=== PATIENT | male | born 1945 | race Caucasian/White ===

== ENCOUNTER → 2016-10-26 | Outpatient (CLI) | payer MEDICARE, OTHER | END | disposition home or self-care (01) | LOC: GMAB 10:40 | PROVIDERS: ATTEND Family Medicine | DX: Z12.5 Encounter for screening for malignant neoplasm of prostate (principal); I10 Essential (primary) hypertension | CPT/HCPCS: 84443; G0103 ==

== ENCOUNTER → 2017-07-28 | Outpatient (CLI) | payer MEDICARE, OTHER ==
--- NOTE | 2017-07-29 17:28 | CT ---
EXAM DESCRIPTION: Abdomen/Pelvis w/wo Contrast CLINICAL HISTORY: 72 years Male EPIGASTRIC PAIN COMPARISON: 03/30/2016. TECHNIQUE: Contiguous axial images obtained through the abdomen and pelvis following IV contrast. Reformatted images obtained. This exam was performed according to our department optimization program which includes automated exposure control, adjustment of the mA and/or kv according to patient size and/or use of iterative reconstruction technique. FINDINGS: There is a small noncalcified nodular focus in the base of the right middle lobe measuring 4 mm. Recommend follow-up in 12 months if this patient has high risk factors for malignancy. There is a stable nodular density along the superior aspect of the right hemidiaphragm seen on series 2 image 10. The spleen and pancreas appear unremarkable. No adrenal masses. The kidneys appear unremarkable. No hydronephrosis. The gallbladder is visualized. No aneurysmal dilatation of the aorta. Scattered vascular calcification. No bowel obstruction. The appendix is unremarkable. No significant free fluid noted. Prostate is calcified. Occasional diverticula in the colon without evidence of diverticulitis. IMPRESSION: No acute abnormality is identified. 4 mm nodule in the right lung base which is not clearly seen on the prior examination secondary to slice location. If this patient has risk factors for malignancy, recommend follow-up in 12 months Diverticulosis without diverticulitis Electronically signed by: Cesia Valadez 07/29/2017 5:27 PM [employer]
== END | disposition home or self-care (01) ==
LOC: CT 10:11
PROVIDERS: ATTEND Family Medicine
DX: R10.13 Epigastric pain (principal)

== ENCOUNTER 2017-08-01 05:56 | Day surgery (SDC) | payer MEDICARE, OTHER ==
[2017-08-01] MEDS ORDERED: MIDAZOLAM INJ 2 MG/2 ML VIAL ONE (08:08)
[2017-08-01] MEDS ORDERED: TROP 1%/CYCLOPEN 1%/PHENYL 2% DROPS ONE (09:28)
[2017-08-01] MEDS: PROPARACAINE 0.5% OPHTH SOL 15 ML BTTL ONE ×2 (09:46→10:40)
[2017-08-01] MEDS: TOBRAMYCIN SULF 0.3 % OPHT SOL 1 DROP LEFT_EYE ONE ×2 (09:47→10:58)
[2017-08-01] MEDS ORDERED: LIDOCAINE 1% MPF 5 ML VIAL INJ ONE (10:55)
[2017-08-01] MEDS ORDERED: DEXAMETHASONE 0.1% OPHTH SOL 1 DROP LEFT_EYE ONE (10:57)
[2017-08-01] MEDS ORDERED: BRIMONIDINE 0.2% OPHTH DROPS LEFT_EYE ONE (10:58)
[2017-08-01 13:01] VITALS: BP 144/76; TEMP 98.2; O2SAT 98
== END 2017-08-01 11:45 | disposition home or self-care (01) ==
LOC: AMB 05:56
PROVIDERS: ATTEND Ophthalmology
DX: H25.12 Age-related nuclear cataract, left eye (principal); I10 Essential (primary) hypertension; Z87.891 Personal history of nicotine dependence; Z79.82 Long term (current) use of aspirin; Z79.899 Other long term (current) drug therapy
CPT/HCPCS: 66984; J2250

== ENCOUNTER 2017-09-26 05:50 | Day surgery (SDC) | payer MEDICARE, OTHER ==
[2017-09-26] MEDS ORDERED: TROP 1%/CYCLOPEN 1%/PHENYL 2% DROPS ONE (10:12)
[2017-09-26] MEDS ORDERED: MIDAZOLAM INJ 2 MG/2 ML VIAL ONE (13:00)
[2017-09-26] MEDS ORDERED: TOBRAMYCIN SULF 0.3 % OPHT SOL 1 DROP RIGHT_EYE ONE ×2 (13:26→14:28)
[2017-09-26] MEDS: PROPARACAINE 0.5% OPHTH SOL 15 ML BTTL ONE ×2 (13:26→14:17)
[2017-09-26] MEDS ORDERED: LIDOCAINE 1% PF 2 ML AMP INJ ONE (14:23)
[2017-09-26] MEDS ORDERED: DEXAMETHASONE 0.1% OPHTH SOL 1 DROP RIGHT_EYE ONE (14:27)
[2017-09-26] MEDS ORDERED: BRIMONIDINE 0.2% OPHTH DROPS RIGHT_EYE ONE (14:28)
[2017-09-26 15:11] VITALS: BP 156/89; TEMP 98.2; O2SAT 98
== END 2017-09-26 15:05 | disposition home or self-care (01) ==
LOC: AMB 05:50
PROVIDERS: ATTEND Ophthalmology
DX: H25.11 Age-related nuclear cataract, right eye (principal); I10 Essential (primary) hypertension; Z79.82 Long term (current) use of aspirin; Z79.899 Other long term (current) drug therapy
CPT/HCPCS: 00142; 66984; J2250; V2786

== ENCOUNTER → 2017-10-28 | Outpatient (CLI) | payer MEDICARE, OTHER | LOC: GMAB 10:50 | PROVIDERS: ATTEND Family Medicine | DX: I10 Essential (primary) hypertension (principal); Z12.5 Encounter for screening for malignant neoplasm of prostate | CPT/HCPCS: 84443; G0103 ==

== ENCOUNTER 2018-11-08 05:22 | Day surgery (SDC) | payer MEDICARE, OTHER ==
[2018-11-08] MEDS ORDERED: LACTATED RINGERS 1,000 ML ONE (07:58)
[2018-11-08] MEDS ORDERED: PROPOFOL 200 MG/20 ML VIAL IV ONE (10:00)
[2018-11-08 10:05] VITALS: BP 135/93; TEMP 97.4; O2SAT 94
--- NOTE | 2018-11-08 10:15 | OP ---
DATE OF PROCEDURE: 11/08/18 PREPROCEDURE DIAGNOSIS: 1. Esophageal dysphagia. POSTPROCEDURE DIAGNOSIS: 1. Schatzki's ring. 2. Gastric scar. PROCEDURE: 1. Upper endoscopy with biopsy and Savary dilation. SURGEON: David Louis MD. SEDATION: Monitored anesthesia care. ESTIMATED BLOOD LOSS: Less than 5 mL. PROCEDURE: Informed consent was obtained prior to sedation. The preprocedure cardiopulmonary assessment was satisfactory. The patient was brought to the Endoscopy Suite and placed in the left lateral decubitus position. The patient was then sedated by the anesthesia team. The tip of the Olympus EGD scope was inserted into oropharynx and advanced under direct visualization across the cricopharyngeus muscle into the esophageal lumen. In the GE junction, there was a Schatzki's ring which was nonobstructing. The endoscope passed with ease. Retroflexed view of the cardia showed no abnormalities. There was a scar in the inferior wall of the gastric body with some heaped up mucosa. Biopsies were taken of this area with cold forceps for histology. The antrum appeared normal. The first and second portions of the duodenum were normal. The decision was made to dilate the esophagus. A spring-tip guidewire was fed through the channel of the scope with the tip terminating in the antrum. While leaving the guidewire in place, the endoscope was withdrawn. An 18 mm Savary dilator was inserted over the guidewire with dilation of the entire esophagus. The guidewire and dilator were then withdrawn and the procedure terminated. RECOMMENDATION: 1. Discharge the patient home with escort. 2. Resume regular diet. 3. Continue present medications. 4. Followup pathology. 5. Return to my office in two months. #[id number] MTDD
== END 2018-11-08 10:02 | disposition home or self-care (01) ==
LOC: AMB 05:22
PROVIDERS: ATTEND Internal Medicine Gastroenterology
DX: K29.50 Unspecified chronic gastritis without bleeding (principal); K22.2 Esophageal obstruction; K31.89 Other diseases of stomach and duodenum; K21.9 Gastro-esophageal reflux disease without esophagitis; I10 Essential (primary) hypertension; E66.9 Obesity, unspecified; G47.30 Sleep apnea, unspecified; Z68.36 Body mass index [BMI] 36.0-36.9, adult; Z85.810 Personal history of malignant neoplasm of tongue; Z79.82 Long term (current) use of aspirin; Z79.899 Other long term (current) drug therapy
CPT/HCPCS: 00731; 43239; 43248; 88305; 88342; J3490; J7120

== ENCOUNTER → 2018-11-15 | Outpatient (CLI) | payer MEDICARE, OTHER | LOC: GMAE 10:42 | PROVIDERS: ATTEND Family Medicine | DX: I10 Essential (primary) hypertension (principal) ==

== ENCOUNTER → 2018-12-14 | Outpatient (CLI) | payer MEDICARE, OTHER | LOC: SL 20:25 | PROVIDERS: ATTEND Family Medicine | DX: G47.30 Sleep apnea, unspecified (principal); I10 Essential (primary) hypertension ==

== ENCOUNTER → 2019-06-29 | Outpatient (CLI) | payer MEDICARE, OTHER ==
--- NOTE | 2019-06-29 16:39 | MRI ---
EXAM DESCRIPTION: Knee,Left CLINICAL HISTORY: KNEE PAIN, feels unstable. COMPARISON: None Available. TECHNIQUE: MRI of the right knee is performed with multiplanar multi sequence imaging, without intravenous contrast. FINDINGS: Bone and joint: Moderate reactive/degenerative medial knee compartment bone marrow edema (medial femoral condyle and tibial plateau). Heterogenous bone marrow signal, nonspecific. Moderate to severe knee osteoarthrosis with tricompartmental osteophyte formation. Large knee joint effusion with mild diffuse synovitis. Cartilage: Grade 4/full-thickness chondral loss involves the medial knee compartment. Grade 2-3 chondrosis involves the lateral knee compartment. Grade 3-4 chondrosis involves the patellofemoral compartment. Medial meniscus: Severe degenerative tearing and maceration of the meniscus body with complex tear of the anterior and posterior horns extending towards root insertions. Lateral meniscus: Small tear of the anterior horn root insertion with associated para meniscal cysts. Degenerative signal within the posterior horn and root. Anterior cruciate ligament: Interstitial mucoid degeneration and expansion of the ACL, which is otherwise intact. Posterior cruciate ligament: Intact. Mild mucoid degeneration of the patient with fibrous. Medial collateral ligament: Intact Lateral collateral ligament: Intact Popliteus tendon: Intact Biceps femoris tendon: Intact Iliotibial band: Intact Medial and lateral retinaculum: Intact Extensor mechanism: The distal quadriceps tendon is intact. The patella tendon is intact with mild tendinosis. Soft tissues: Large partially septated Garcia's cyst measuring 5.8 x 3.7 cm.. Mild nonspecific pre and infrapatellar soft tissue edema. IMPRESSION: 1. Medial meniscus maceration and severe complex degenerative tearing. 2. Lateral meniscus small tear at the anterior root. 3. ACL moderate mucoid degeneration. 4. Moderate to severe knee osteoarthrosis with full-thickness medial knee compartment cartilage loss. Moderate medial knee compartment degenerative bone marrow edema. 5. Large knee joint effusion with mild diffuse synovitis. 6. Large Garcia cyst. Electronically signed by: Alexandre Cummins DO 06/29/2019 4:37 PM CDT
== END ==
LOC: MRI 08:00
PROVIDERS: ATTEND Family Medicine
DX: S83.242A Other tear of medial meniscus, current injury, left knee, initial encounter (principal); S83.282A Other tear of lateral meniscus, current injury, left knee, initial encounter; M17.12 Unilateral primary osteoarthritis, left knee; M65.862 Other synovitis and tenosynovitis, left lower leg; M71.22 Synovial cyst of popliteal space [Baker], left knee

== ENCOUNTER → 2019-07-19 | Outpatient (CLI) | payer MEDICARE, OTHER ==
--- NOTE | 2019-07-19 10:33 | RAD ---
EXAM DESCRIPTION: Pelvis CLINICAL HISTORY: 74 years Male, PAIN IN LEFT HIP COMPARISON: None. TECHNIQUE: AP radiograph of the pelvis was performed. FINDINGS: The pelvic ring appears grossly intact on this single AP radiograph. No acute fracture or dislocation. Bilateral sacroiliac joints appear normal. Moderate to severe right and [id number] left hip osteoarthritis. The visualized lumbo-sacral spine demonstrates mild degenerative changes. IMPRESSION: Single AP radiograph of the pelvis demonstrates grossly intact pelvic ring. Moderate to severe right and [id number] left hip osteoarthritis. Electronically signed by: Anca Page MD 07/19/2019 10:31 AM [facility]
--- NOTE | 2019-07-19 10:36 | RAD ---
EXAM DESCRIPTION: Knee,Left Complete CLINICAL HISTORY: 74 years Male, PAIN IN LEFT KNEE TECHNIQUE: 5 views of the left knee were performed. COMPARISON: Radiographs of the left knee dated 06/29/2019. FINDINGS: The visualized bones appear poorly mineralized. No acute fracture or dislocation. Tricompartmental joint space narrowing with [id number]-[id number] appearance in the medial tibiofemoral compartment. Moderate-sized suprapatellar joint effusion. The soft tissues appear grossly unremarkable. IMPRESSION: Tricompartmental joint space narrowing with altm-[id number] appearance in the medial tibiofemoral compartment. Moderate-sized suprapatellar joint effusion. Electronically signed by: Anca Page MD 07/19/2019 10:35 AM [facility]
== END ==
LOC: RAD 08:22
PROVIDERS: ATTEND Orthopaedic Surgery
DX: M17.12 Unilateral primary osteoarthritis, left knee (principal); M25.462 Effusion, left knee; M16.0 Bilateral primary osteoarthritis of hip

== ENCOUNTER → 2019-08-27 | Outpatient (CLI) | payer MEDICARE, OTHER | LOC: LAB.O 08:10 | PROVIDERS: ATTEND Orthopaedic Surgery | DX: Z01.818 Encounter for other preprocedural examination (principal) ==

== ENCOUNTER 2019-09-26 05:22 | Outpatient (CLI) | payer MEDICARE, OTHER ==
[2019-09-26] MEDS ORDERED: SODIUM CHL 0.9% 100ML MINI-BAG 100 ML IVPB ONE (05:41)
[2019-09-26] MEDS ORDERED: SODIUM CHLORIDE 0.9% 100ML 100 ML IVPB ONE (05:42)
[2019-09-26] MEDS ORDERED: SODIUM CHLORIDE 0.9% 250ML 250 ML ONE (05:42)
[2019-09-26] MEDS ORDERED: LACTATED RINGERS 1,000 ML ONE (05:43)
[2019-09-26] MEDS ORDERED: TRANEXAMIC ACID 1,000 MG/10 ML VIAL ONE ×2 (05:43→05:44)
[2019-09-26] MEDS ORDERED: ceFAZolin SODIUM 1 GM VIAL ONE ×2 (05:43→06:28)
[2019-09-26] MEDS ORDERED: VANCOMYCIN HCL INJ 1,000 MG VIAL IVPB ONE ×3 (05:45→06:28)
[2019-09-26] MEDS ORDERED: TRANEXAMIC ACID 1,000 MG/10 ML VIAL IV ONE (06:20)
[2019-09-26] MEDS ORDERED: KETAMINE HCL 100 MG/ML VIAL ONE (06:22)
[2019-09-26] MEDS ORDERED: ACETAMINOPHEN IV 1000MG 0 ML ONE (06:22)
[2019-09-26] MEDS ORDERED: DEXMEDETOMIDINE HCL 200 MCG/2 ML INJ IV ONE (06:22)
[2019-09-26] MEDS ORDERED: HYDROmorphone HCL INJ 2 MG/ML VIAL ONE (06:22)
[2019-09-26] MEDS ORDERED: MIDAZOLAM INJ 5 MG/5 ML VIAL ONE (06:22)
[2019-09-26] MEDS ORDERED: LACTATED RINGERS 1,000 ML IVS ONE (06:25)
[2019-09-26] MEDS ORDERED: BUPIVACAINE 0.5% 30 ML VIAL INJ ONE (06:28)
[2019-09-26] MEDS ORDERED: BUPIVACAINE LIPOSOME 13.3 MG/ML VIAL INJ ONE (06:28)
[2019-09-26 07:52] VITALS: BP 168/84; TEMP 97.3; O2SAT 91
== END 2019-09-26 07:00 | disposition home or self-care (01) ==
LOC: AMB 05:22 → EDSTATUS 07:00
PROVIDERS: ATTEND Orthopaedic Surgery
DX: Z01.818 Encounter for other preprocedural examination (principal); M17.12 Unilateral primary osteoarthritis, left knee
CPT/HCPCS: 80307; 86850; 86900; 86901; J7050; J7120

== ENCOUNTER → 2019-09-28 | Outpatient (CLI) | payer MEDICARE, OTHER ==
[~2019-09-28] MED LIST: IPRATROPIUM/ALBUTEROL 3 ML VIAL NEB ONE
== END ==
LOC: RESP 08:55
PROVIDERS: ATTEND Family Medicine
DX: R06.02 Shortness of breath (principal)
CPT/HCPCS: 94060; J7620

== ENCOUNTER 2019-10-16 05:44 | Inpatient (IN) | payer MEDICARE, OTHER ==
[~2019-10-16 05:44] MED LIST changes: -IPRATROPIUM/ALBUTEROL 3 ML VIAL NEB ONE; +LACTATED RINGERS 1,000 ML ONE; +SODIUM CHL 0.9% 100ML MINI-BAG 100 ML IVPB ONE; +SODIUM CHLORIDE 0.9% 100ML 100 ML IVPB ONE; +SODIUM CHLORIDE 0.9% 250ML 250 ML ONE; +TRANEXAMIC ACID 1,000 MG/10 ML VIAL ONE; +VANCOMYCIN HCL INJ 1,000 MG VIAL IVPB ONE; +ceFAZolin SODIUM 1 GM VIAL ONE
[2019-10-16] MEDS ORDERED: ceFAZolin SODIUM 1 GM VIAL ONE ×3 (06:22→19:39)
[2019-10-16] MEDS ORDERED: VANCOMYCIN HCL INJ 1,000 MG VIAL IVPB ONE ×3 (06:23→19:19)
[2019-10-16] MEDS ORDERED: BUPIVACAINE LIPOSOME 13.3 MG/ML VIAL INJ ONE ×2 (06:23→06:42)
[2019-10-16] MEDS ORDERED: BUPIVACAINE 0.5% 30 ML VIAL INJ ONE ×3 (06:23→07:56)
[2019-10-16] MEDS ORDERED: KETAMINE HCL 100 MG/ML VIAL ONE (06:31)
[2019-10-16] MEDS ORDERED: HYDROmorphone HCL INJ 2 MG/ML VIAL ONE (06:31)
[2019-10-16] MEDS ORDERED: MIDAZOLAM INJ 5 MG/5 ML VIAL ONE (06:31)
[2019-10-16] MEDS ORDERED: ceFAZolin SODIUM 1 GM VIAL IRRIG ONE (06:42)
[2019-10-16] MEDS ORDERED: ELECTROLYTE-A 1,000 ML IVS ONE (08:16)
[2019-10-16] MEDS ORDERED: MORPHINE SULFATE INJ 10 MG/ML VIAL IV PRN (09:35)
[2019-10-16] MEDS ORDERED: TEMAZEPAM 15 MG CAP PO PRN (09:35)
[2019-10-16] MEDS ORDERED: SODIUM CHLORIDE 0.9% (FLUSH) 10 ML SYG IV PRN (09:35)
[2019-10-16] MEDS ORDERED: BISACODYL SUPPOSITORY 10 MG PR PRN (09:35)
[2019-10-16] MEDS ORDERED: ACETAMINOPHEN 325 MG TAB PO PRN (09:35)
[2019-10-16] MEDS ORDERED: ACETAMINOPHEN 500 MG TAB PO PRN (09:35)
[2019-10-16] MEDS ORDERED: traMADol HCL 50 MG TAB PO PRN (09:35)
[2019-10-16] MEDS ORDERED: MAGNESIUM HYDROXIDE 30 ML UD PO PRN (09:35)
[2019-10-16] MEDS ORDERED: MORPHINE SULFATE INJ 10 MG/ML VIAL IM PRN (09:35)
[2019-10-16] MEDS ORDERED: NALOXONE HCL INJ 0.4 MG/ML VIAL IV PRN (09:35)
[2019-10-16] MEDS ORDERED: ONDANSETRON INJ 4 MG/2 ML VIAL IV PRN (09:35)
[2019-10-16] MEDS ORDERED: PROMETHAZINE HCL INJ 12.5 MG in SODIUM CHLORIDE 0.9% 50ML 50 ML IVPB PRN (09:35)
[2019-10-16] MEDS ORDERED: TRANEXAMIC ACID INJ 1,000 MG in SODIUM CHLORIDE 0.9% 100ML 100 ML IVPB ONE (09:35)
[2019-10-16] MEDS ORDERED: PROMETHAZINE HCL INJ 25 MG in SODIUM CHLORIDE 0.9% 50ML 50 ML IVPB PRN (09:35)
[2019-10-16] MEDS ORDERED: BENZOCAINE-MENTH LOZ (CEPACOL) 1 EA LOZ MT PRN (09:35)
[2019-10-16] MEDS ORDERED: ZOLPIDEM TARTRATE 5 MG TAB PO PRN (09:35)
[2019-10-16] MEDS ORDERED: ALUMINUM & MAGNESIUM HYDROXIDE 30 ML UD PO PRN (09:35)
[2019-10-16] MEDS ORDERED: MAGNESIUM SULFATE INJ 1 GM/2 ML VIAL IVPB ONE (10:00)
[2019-10-16] MEDS ORDERED: raNITIdine HCL INJ 25 MG/ML VIAL IV ONE (10:00)
[2019-10-16] MEDS ORDERED: DEXAMETHASONE INJ 10 MG/ML VIAL IV ONE (10:00)
[2019-10-16] MEDS ORDERED: ePHEDrine SULF 50 MG/ML IV ONE (10:00)
[2019-10-16] MEDS ORDERED: SODIUM CHLORIDE 0.9% 50 ML VIAL INJ ONE (10:00)
[2019-10-16] MEDS ORDERED: PROPOFOL 200 MG/20 ML VIAL IV ONE (10:00)
[2019-10-16] MEDS ORDERED: MORPHINE PCA 1 MG/ML 100 ML BAG IVPB SCH (10:00)
[2019-10-16] MEDS ORDERED: diphenhydrAMINE HCL 50 MG/ML VIAL IV ONE (10:00)
[2019-10-16] MEDS: DEX 5% W/NACL 0.45% 1000ML 1,000 ML IVS PRN (11:48)
--- NOTE | 2019-10-16 13:02 | RAD ---
EXAM DESCRIPTION: Fluoroscopy Up to 1Hr CLINICAL HISTORY: TOTAL LEFT KNEE COMPARISON: None. IMPRESSION: Spot fluoroscopic intraoperative views of the left knee are obtained for localization purposes during knee arthroplasty. Please see dictated operative report for detailed description of findings and procedure. Approximately 1 seconds of intraoperative fluoroscopy time was utilized. No extra exposure images are obtained. Electronically signed by: Rambo Cage MD 10/16/2019 1:00 PM [facility]
--- NOTE | 2019-10-16 14:00 | RAD ---
EXAM DESCRIPTION: Knee,Left 1 or 2 Views CLINICAL HISTORY: 74 years, Male, TKA COMPARISON: 07/19/2019 TECHNIQUE: Frontal and lateral views of the left knee FINDINGS/IMPRESSION: Recent postoperative changes of left total knee arthroplasty in satisfactory alignment without perihardware fracture or evidence of hardware complication. Expected postsurgical gas and soft tissue changes. Electronically signed by: Alexandre Cummins DO 10/16/2019 1:58 PM [facility]
[2019-10-16] MEDS ORDERED: SODIUM CHLORIDE 0.9% 100ML 100 ML IVPB ONE ×2 (16:21→19:38)
[2019-10-16] MEDS: ceFAZolin SODIUM 2 GM in SODIUM CHLORIDE 0.9% 100ML 100 ML IVPB SCH ×2 (16:26→23:30)
[2019-10-16] MEDS: CELECOXIB 100 MG CAP PO SCH (19:08)
[2019-10-16] MEDS ORDERED: SODIUM CHLORIDE 0.9% 250ML 250 ML ONE (19:19)
[2019-10-16] MEDS: VANCOMYCIN HCL INJ 1,000 MG in SODIUM CHLORIDE 0.9% 250ML 250 ML IVPB SCH (19:28)
[2019-10-16] MEDS ORDERED: ENOXAPARIN SODIUM 30 MG/0.3 ML SYG SUBCU ONE (19:38)
[2019-10-16] MEDS: DOCUSATE CALCIUM 240 MG CAP PO SCH (20:53)
[2019-10-16] MEDS: LABETALOL 200 MG TAB PO SCH (20:53)
[2019-10-16] MEDS: CYCLOBENZAPRINE HCL 10 MG TAB PO PRN (22:20)
[2019-10-16] MEDS: ENOXAPARIN SODIUM 30 MG/0.3 ML SYG SUBCU SCH (23:00)
[2019-10-17] MEDS ORDERED: SODIUM CHLORIDE 0.9% 250ML 250 ML ONE (04:19)
[2019-10-17] MEDS ORDERED: PANTOPRAZOLE SODIUM TAB 40 MG PO ONE (04:19)
[2019-10-17] MEDS ORDERED: VANCOMYCIN HCL INJ 1,000 MG VIAL IVPB ONE (04:20)
[2019-10-17] MEDS: VANCOMYCIN HCL INJ 1,000 MG in SODIUM CHLORIDE 0.9% 250ML 250 ML IVPB SCH (05:33)
[2019-10-17] MEDS: PANTOPRAZOLE SODIUM TAB 40 MG PO SCH (06:53)
[2019-10-17] MEDS ORDERED: SODIUM CHLORIDE 0.9% 100ML 100 ML IVPB ONE (07:27)
[2019-10-17] MEDS ORDERED: ceFAZolin SODIUM 1 GM VIAL ONE (07:27)
[2019-10-17] MEDS: ceFAZolin SODIUM 2 GM in SODIUM CHLORIDE 0.9% 100ML 100 ML IVPB SCH (07:55)
[2019-10-17] MEDS: IV SET AND CAP CHANGE INJ INJ SCH (08:02)
[2019-10-17] MEDS: CELECOXIB 100 MG CAP PO SCH ×2 (08:03→17:51)
[2019-10-17] MEDS ORDERED: HYDROcodone 5MG/APAP 325MG 1 EA TAB ONE (08:11)
[2019-10-17] MEDS: CETIRIZINE HCL 10 MG TAB PO SCH (08:46)
[2019-10-17] MEDS: LABETALOL 200 MG TAB PO SCH ×2 (08:46→20:34)
[2019-10-17] MEDS: ASPIRIN (ENTERIC COATED) 81 MG TAB PO SCH (08:47)
[2019-10-17] MEDS: MAGNESIUM OXIDE 400 MG TAB PO SCH (08:47)
[2019-10-17] MEDS: hydroCHLOROthiazide 12.5 MG CAP PO SCH (08:47)
[2019-10-17] MEDS: MULTIPLE VITAMINS W/ MINERALS 1 EA TAB PO SCH (08:47)
[2019-10-17] MEDS: HYDROcodone 5MG/APAP 325MG 1 EA TAB PO PRN ×2 (08:48→14:52)
[2019-10-17] MEDS ORDERED: LISINOPRIL 10 MG TAB PO SCH (09:00)
[2019-10-17] MEDS: ENOXAPARIN SODIUM 30 MG/0.3 ML SYG SUBCU SCH ×2 (11:10→23:12)
--- NOTE | 2019-10-17 12:45 | PN ---
DATE: 10/17/19 SUBJECTIVE: Mr. Tsang is doing well and he has good pain control. OBJECTIVE: Afebrile. Vital signs stable. Dressing is clean, dry and intact. ASSESSMENT: Status post total knee arthroplasty. PLAN: The plan at this point is to continue with weightbearing as tolerated. #[id number] MTDD
--- NOTE | 2019-10-17 12:56 | OP ---
DATE OF PROCEDURE: 10/16/19 PREOPERATIVE DIAGNOSIS: 1. Osteoarthritis of left knee. POSTOPERATIVE DIAGNOSIS: 1. Osteoarthritis of left knee. PROCEDURE: 1. Total knee arthroplasty. SURGEON: Saroj Whiting MD. WATCH ASSEMBLER: Kee Mcgowan CST, SA-C. ANESTHESIA: General anesthesia. COMPLICATIONS: None. FINDINGS: Severe osteoarthritis of the knee. INDICATION: Mr. Tsang has a history of severe knee pain that has been refractory to conservative measures. Because of the refractory nature of his pain, he has requested operative intervention. After discussing the risks, benefits and alternatives to that, the patient has given informed consent for total knee arthroplasty. PROCEDURE: The patient was brought to the Operating Room and placed in supine position. General anesthesia was induced and the patient's leg was sterilely prepped and draped. Following prepping and draping, the distal femur was exposed and using an intramedullary guide, the distal femoral cut was made. The appropriate sized cutting block was measured, pinned into place, and the anterior, posterior, and chamfer cuts were made. The ACL was transected and the tibia was subluxed. Both the medial and lateral menisci were removed. An intramedullary guide was used to make the proximal tibial cut. The appropriate sized base plate was placed and a trial polyethylene was placed. The trial femur was placed, the knee was reduced, and the knee was taken through a range of motion. The knee was stable in anterior, posterior, varus and valgus stress. The patella tracked anatomically without evidence of subluxation or dislocation. After trialing, the trial components were removed and the bony surfaces were thoroughly irrigated with saline. Following irrigation, the surfaces were dried and the final components were cemented into place. The excess cement was removed and the remaining cement was allowed to cure. The knee was again taken through a range of motion to confirm stability. The wound was then irrigated with saline and closure was performed using PDS to approximate the arthrotomy followed by closure of the subcutaneous tissues with a combination of running and interrupted Monocryl sutures. Sterile dressing was placed. The patient was awoken from anesthesia and taken to Recovery. COMPONENTS: Paige Triathlon knee, size 7 femur, size 6 tibia, 9 mm insert. POSTOPERATIVE PLAN: The patient will be weight-bearing as tolerated on postoperative day 1. #[id number] [facility]
--- NOTE | 2019-10-17 14:37 | CONS ---
DATE OF CONSULTATION: 10/16/19 SUPERVISING PHYSICIAN: Mervin Serrano MD HISTORY OF PRESENT ILLNESS: This is a 74-year-old male patient who has had osteoarthritis of the left knee for quite some time. He has tried conservative measures and he has failed to gain any relief. He has requested Dr. Saroj Whiting, orthopedic surgeon, for operative intervention. He was admitted today on the day of his operation. He had no intraoperative complications. I am seeing the patient on the Floor postoperatively. He is on the Medical/Surgical Floor in stable condition. PAST MEDICAL HISTORY: 1. Obstructive sleep apnea. 2. Osteoarthritis. 3. Hypertension. 4. 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 PAST SURGICAL HISTORY: 1. Hernia repair. 2. Throat cancer removal. OUTPATIENT MEDICATIONS: 1. Mobic. 2. Blackwell 3 fatty acids. 3. Aspirin. 4. Cetirizine. 5. Hydrochlorothiazide. 6. Labetalol. 7. Lisinopril. 8. Multivitamins with minerals. 9. Pantoprazole. ALLERGIES: NO KNOWN DRUG ALLERGIES. FAMILY HISTORY: Positive for chronic obstructive pulmonary disease. SOCIAL HISTORY: He is retired. He is . He quit smoking cigarettes in April of 2016. He previously was an alcoholic, but his last drink was approximately 18 years ago. REVIEW OF SYSTEMS: Negative except as per history of present illness. PHYSICAL EXAMINATION: VITAL SIGNS: Temperature 97.2. Heart rate 67. Blood pressure 154/77. Respiratory rate 16. O2 saturation 92% on 2 liters nasal cannula. GENERAL: This is a 74-year-old male patient who is sitting up in his hospital bed. He is in no acute distress. HEENT: Normocephalic, atraumatic. Pupils are equal and reactive. Oropharynx is clear. NECK: Supple without mass. RESPIRATORY: Essentially clear to auscultation bilaterally. CHEST: There is equal rise and fall of the chest with inspiration and expiration. CARDIOVASCULAR: Regular rate and rhythm. GASTROINTESTINAL: Abdomen is soft, nondistended, nontender. Bowel sounds are positive. EXTREMITIES: He has a dressing that is wrapped on his left knee. It is dry and intact. His bilateral pedal pulses are palpable at +2. NEUROLOGIC: Awake, alert and oriented times three. Cranial nerves II-XII are grossly intact as tested. SKIN: Warm and dry. LABORATORY: Urine drug screen is negative. All other labs and films have been reviewed via the EMR. IMPRESSION: 1. Osteoarthritis of the left knee failed outpatient treatment, status post left total knee arthroplasty, postoperative day #0. 2. Obstructive sleep apnea. 3. History of cancer of the tongue. 4. Hypertension on medications. PLAN: We will continue present supportive care. Orthopedic issues will be per Dr. Saroj Whiting, orthopedic surgeon. He will begin his physical therapy for strengthening and conditioning tomorrow. He plans to be discharged in the next 2 to 3 days and will go home and have followup therapy at the [facility]. I have restarted his home medications. Until then, we will continue to monitor the patient closely and follow as needed. #[id number] [facility]
[2019-10-17] MEDS: DEX 5% W/NACL 0.45% 1000ML 1,000 ML IVS PRN (18:18)
[2019-10-17] MEDS: CYCLOBENZAPRINE HCL 10 MG TAB PO PRN (18:19)
[2019-10-17] MEDS: DOCUSATE CALCIUM 240 MG CAP PO SCH (20:36)
[2019-10-18] MEDS: PANTOPRAZOLE SODIUM TAB 40 MG PO SCH (06:05)
[2019-10-18] MEDS: CELECOXIB 100 MG CAP PO SCH ×2 (08:27→16:25)
[2019-10-18] MEDS: ASPIRIN (ENTERIC COATED) 81 MG TAB PO SCH (08:27)
[2019-10-18] MEDS: hydroCHLOROthiazide 12.5 MG CAP PO SCH (08:28)
[2019-10-18] MEDS: MAGNESIUM OXIDE 400 MG TAB PO SCH (08:28)
[2019-10-18] MEDS: MULTIPLE VITAMINS W/ MINERALS 1 EA TAB PO SCH (08:28)
[2019-10-18] MEDS: CETIRIZINE HCL 10 MG TAB PO SCH (08:29)
[2019-10-18] MEDS: SODIUM CHLORIDE 0.9% (FLUSH) 10 ML SYG IV SCH ×2 (08:29→21:03)
[2019-10-18] MEDS: NON-FORMULARY MEDICATION 1 EA MIS PO SCH (09:46)
[2019-10-18] MEDS: LABETALOL 200 MG TAB PO SCH ×2 (09:46→21:55)
[2019-10-18] MEDS: HYDROcodone 5MG/APAP 325MG 1 EA TAB PO PRN ×3 (10:15→21:50)
[2019-10-18] MEDS: ENOXAPARIN SODIUM 30 MG/0.3 ML SYG SUBCU SCH ×2 (10:54→23:33)
--- NOTE | 2019-10-18 13:10 | PN ---
SUPERVISING PHYSICIAN: Mervin Serrano MD DATE: 10/17/19 SUBJECTIVE: The patient has been complaining of some nausea as well as diaphoresis. He could not complete his physical therapy today. He felt somewhat lightheaded, but is feeling somewhat better since he got back to bed. He denies any chest pain. OBJECTIVE: VITAL SIGNS: Temperature 98.3. Heart rate 50. Blood pressure 83/50. Respiratory rate 20. O2 saturation 95% on 2 liters nasal cannula. RESPIRATORY: Somewhat diminished at the bases. He is slightly tachypneic. He has to speak in short phrases. CARDIAC: Regular rate and bradycardic rhythm. GASTROINTESTINAL: Abdomen is soft, nondistended, nontender. Bowel sounds are positive. SKIN: Slightly diaphoretic, but it is warm. NEUROLOGIC: Awake, alert and oriented times three. LABORATORY: Hemoglobin 12.2, hematocrit 36.9. Blood sugars have run between 171 to 191. Cardiac enzymes negative. All other labs and films have been reviewed via the EMR. ASSESSMENT: 1. Osteoarthritis of the left knee failed outpatient treatment, status post left total knee arthroplasty, postoperative day #1. 2. Obstructive sleep apnea. 3. History of cancer of the tongue. 4. Hypertension on medications. PLAN: We will continue present supportive care. Orthopedic issues will be per Dr. Saroj Whiting, orthopedic surgeon. I have given him some fluids for his low blood pressure and we have held his Atenolol and his blood pressure medicines may have to be adjusted. He will not be able to complete his physical therapy today. We will see how he feels this afternoon. We will watch his vital signs closely. Cardiac enzymes were negative. I will repeat a troponin to make sure his troponin stays within normal limits. We will continue to monitor the patient closely and follow as needed. #[id number] [facility]
[2019-10-18] MEDS: DOCUSATE CALCIUM 240 MG CAP PO SCH (21:03)
[2019-10-19] MEDS: PANTOPRAZOLE SODIUM TAB 40 MG PO SCH (06:04)
[2019-10-19] MEDS: HYDROcodone 5MG/APAP 325MG 1 EA TAB PO PRN (06:09)
[2019-10-19] MEDS: LABETALOL 200 MG TAB PO SCH ×2 (08:07→21:00)
[2019-10-19] MEDS: MULTIPLE VITAMINS W/ MINERALS 1 EA TAB PO SCH (08:07)
[2019-10-19] MEDS: CELECOXIB 100 MG CAP PO SCH ×2 (08:07→16:01)
[2019-10-19] MEDS: LISINOPRIL 10 MG TAB PO SCH (08:07)
[2019-10-19] MEDS: SODIUM CHLORIDE 0.9% (FLUSH) 10 ML SYG IV SCH ×2 (08:08→21:00)
[2019-10-19] MEDS: hydroCHLOROthiazide 12.5 MG CAP PO SCH (08:08)
[2019-10-19] MEDS: CETIRIZINE HCL 10 MG TAB PO SCH (08:08)
[2019-10-19] MEDS: ASPIRIN (ENTERIC COATED) 81 MG TAB PO SCH (08:08)
[2019-10-19] MEDS: MAGNESIUM OXIDE 400 MG TAB PO SCH (08:08)
[2019-10-19] MEDS: NON-FORMULARY MEDICATION 1 EA MIS PO SCH (08:08)
--- NOTE | 2019-10-19 08:19 | PN ---
SUPERVISING PHYSICIAN: Mervin Serrano MD DATE: 10/18/19 SUBJECTIVE: The patient has had a difficult time getting up. His blood pressure has been low and he has been very weak and having difficulty with his pain control as well as his physical therapy. He and his decided he should go to [facility] for more in depth rehabilitation after he has completed his physical therapy here at the hospital. He denies any chest pain, shortness of breath, nausea or vomiting. OBJECTIVE: VITAL SIGNS: Temperature 98.3. Heart rate 91. Blood pressure 117/64. It has been as low as 92/57. Respiratory rate 16. O2 saturation 98% on 3.5 liters nasal cannula. RESPIRATORY: Essentially clear to auscultation bilaterally. He is somewhat diminished at the bases. CARDIAC: Regular rate and rhythm. GASTROINTESTINAL: Abdomen is soft, nondistended, nontender. Bowel sounds are positive. EXTREMITIES: He has a dressing to his left knee that is dry and intact. Bilateral pedal pulses are palpable at +2. NEUROLOGIC: Awake, alert and oriented times three. LABORATORY: Blood sugars have run between 115 to 183. His initial cardiac enzymes yesterday after he was diaphoretic were within normal limits. His followup troponin was less than 0.02. All other labs and films have been reviewed via the EMR. ASSESSMENT: 1. Osteoarthritis of the left knee failed outpatient treatment, status post left total knee arthroplasty performed by Dr. Saroj Whiting, postoperative day #2. 2. Obstructive sleep apnea. 3. History of cancer of the tongue. 4. Hypertension on medications. PLAN: We will continue present supportive care. Orthopedic issues will be per Dr. Saroj Whiting, orthopedic surgeon. He will continue with his physical therapy for strengthening and conditioning. I have adjusted his blood pressure medications as his blood pressure has been on the low side. He was getting labetalol 100 mg in the morning and 200 mg at h.s. I have changed that 100 mg b.i.d. He also was getting lisinopril 40 mg in the morning and I have changed that to lisinopril 10 mg daily. We will need watch his blood pressure closely as those may have to go back up. [facility] did come to evaluate him today and have accepted him once he is cleared medically here at the hospital. As long as his blood pressures are normalized, he should be able to transfer tomorrow or the next day to [facility]. Otherwise, we will continue to monitor the patient closely and follow as needed. [facility][id number] [facility]
[2019-10-19] MEDS ORDERED: LABETALOL 200 MG TAB PO SCH (09:00)
[2019-10-19] MEDS: ENOXAPARIN SODIUM 30 MG/0.3 ML SYG SUBCU SCH ×2 (11:17→22:55)
[2019-10-19] MEDS: IV SET AND CAP CHANGE INJ INJ SCH (11:21)
--- NOTE | 2019-10-19 13:33 | PN ---
SUPERVISING PHYSICIAN: Mervin Serrano MD DATE: 10/19/19 SUBJECTIVE: The patient has had good control of his blood pressure since modification of his high blood pressure medicines. He has not had any complaints of chest pains, shortness of breath. He did show a little desaturation with ambulation this morning, but easily recovered with O2. He remains afebrile. At this point, he has been accepted to [facility], just waiting on a bed. OBJECTIVE: VITAL SIGNS: Temperature 98.1. Pulse 79. Blood pressure 120/68. Respirations 18. Saturation 98% on nasal cannula at 4.5 liters. I&Os show negative balance. He has had one bowel movement. Weight 129.2 kg. GENERAL: The patient just finished ambulating. He is resting in a chair. He appears to be comfortable, in no acute distress. He is alert. CHEST: Lungs are clear to auscultation, just slightly diminished towards the bases. HEART: Regular rate and rhythm. ABDOMEN: Obese, but soft and nontender. Positive bowel sounds. EXTREMITIES: Left knee has dressing in place which is clean and dry. No areas of erythema or signs of infection. Distal pulses 2+ bilaterally. NEUROLOGIC: Alert and oriented times three. LABORATORY: No additional laboratory studies. RADIOLOGY: No additional radiographic studies. ASSESSMENT: 1. Osteoarthritis of the left knee failed outpatient treatment, status post left total knee arthroplasty performed by Dr. Saroj Whiting, postoperative day #3. 2. Obstructive sleep apnea. 3. History of cancer of the tongue. 4. Hypertension on medications. PLAN: We will continue to follow the patient as he continues to progress through his rehabilitation and physical therapy efforts. He has been accepted to inpatient rehabilitation to [facility], but there is no bed available at this point. His blood pressure is stable. We will continue with lisinopril at 10 mg daily and labetalol 100 mg b.i.d. and closely monitor. Once a bed is available, we will certainly transfer care. Until then, we will continue to monitor and treat as needed. Once discharged, he will need to continue with DVT prophylaxis per protocol with Xarelto based on postoperative day. [facility][id number] [facility]
[2019-10-19] MEDS: DOCUSATE CALCIUM 240 MG CAP PO SCH (20:59)
[2019-10-19] MEDS ORDERED: BISACODYL SUPPOSITORY 10 MG PR ONE (21:00)
[2019-10-19] MEDS ORDERED: MAGNESIUM HYDROXIDE 30 ML UD PO ONE (21:00)
[2019-10-20] MEDS: PANTOPRAZOLE SODIUM TAB 40 MG PO SCH (06:03)
[2019-10-20] MEDS: MAGNESIUM OXIDE 400 MG TAB PO SCH (08:05)
[2019-10-20] MEDS: LISINOPRIL 10 MG TAB PO SCH (08:05)
[2019-10-20] MEDS: ASPIRIN (ENTERIC COATED) 81 MG TAB PO SCH (08:05)
[2019-10-20] MEDS: MULTIPLE VITAMINS W/ MINERALS 1 EA TAB PO SCH (08:05)
[2019-10-20] MEDS: CETIRIZINE HCL 10 MG TAB PO SCH (08:05)
[2019-10-20] MEDS: LABETALOL 200 MG TAB PO SCH (08:05)
[2019-10-20] MEDS: CELECOXIB 100 MG CAP PO SCH (08:05)
[2019-10-20] MEDS: CYCLOBENZAPRINE HCL 10 MG TAB PO PRN (08:05)
[2019-10-20] MEDS: SODIUM CHLORIDE 0.9% (FLUSH) 10 ML SYG IV SCH (08:05)
[2019-10-20] MEDS: hydroCHLOROthiazide 12.5 MG CAP PO SCH (08:06)
[2019-10-20] MEDS: ENOXAPARIN SODIUM 30 MG/0.3 ML SYG SUBCU SCH (11:34)
[2019-10-20 12:59] VITALS: BP 135/76; TEMP 97.4; O2SAT 94
--- NOTE | 2019-10-20 15:39 | PN ---
DATE: 10/19/19 SUBJECTIVE: Mr. Tsang is doing well, he is up to a chair and has been walking.. OBJECTIVE: Afebrile. Vital signs stable. Wound is clean and no signs or symptoms of infection. ASSESSMENT: Status post total knee arthroplasty. PLAN: The plan at this point is to discharge him on 10/20/19. #[id number] [facility]TDD
--- NOTE | 2019-10-25 11:35 | DS ---
SUPERVISING PHYSICIAN: Mervin Serrano MD ADMISSION DIAGNOSIS: 1. Osteoarthritis of the left knee failed outpatient treatment, status post left total knee arthroplasty, postoperative day #0. 2. Obstructive sleep apnea. 3. History of cancer of the tongue. 4. Hypertension on medications. DISCHARGE DIAGNOSIS: 1. Osteoarthritis of the left knee failed outpatient treatment, status post left total knee arthroplasty performed by Dr. Saroj Whiting, postoperative day #4. 2. Obstructive sleep apnea. 3. History of cancer of the tongue. 4. Hypertension on medications. REASON FOR HOSPITALIZATION: This is a 74-year-old male patient who has had osteoarthritis of the left knee for quite some time. He has tried conservative measures and he has failed to gain any relief. He has requested Dr. Saroj Whiting, orthopedic surgeon, for operative intervention. He was admitted today on the day of his operation. He had no intraoperative complications. I am seeing the patient on the Floor postoperatively. He is on the Medical/Surgical Floor in stable condition. LABORATORY: Postoperative hemoglobin 12.2, hematocrit 36.9. Chemistries showed blood sugars ranged from 115 to 183. Troponins were less than 0.02. Urinalysis within normal limits. Toxicology screen was negative for all substances tested. HOSPITAL COURSE: Mr. Tsang was admitted on 10/16/19 for elective total knee replacement. He did well during surgery, but had some postoperative complications once he had been started on medications, which did require modification of his medication regimen including his lisinopril and labetalol with the lisinopril being decreased to 10 mg daily and labetalol to 100 mg b.i.d. He did have some low blood pressures before the change was made that resulted in some diaphoresis and some chest pain symptoms with his lowest pressure being 114/56. After medication regimen was changed and he was given fluids, he did stabilize on his blood pressure and was showing to be clinically improved regarding his vital signs. He progressed well through his physical therapy and was felt clinically stable enough to be discharged to continue with outpatient management. DISCHARGE ASSESSMENT: VITAL SIGNS: Blood pressure 156/81. He was afebrile at 97.7. Pulse 85. Saturation 92% on nasal cannula at 2 liters. GENERAL: The patient was resting comfortably and appeared to be in no acute distress. He had just finished physical therapy. CHEST: Clear to auscultation. HEART: Regular rate and rhythm. ABDOMEN: Soft, nontender, positive bowel sounds. EXTREMITIES: Left knee had a dressing in place which was clean and dry, no signs of infection or erythema. Distal pulses were 2+ bilaterally. NEUROLOGIC: Alert and oriented times 3. PLAN: Mr. Tsang was discharged on 10/20/19 and transferred to [facility] for continued rehab and physical therapy efforts. Diet was to resume as tolerated. Activities as per physical therapy. Medications prescribed at discharge included: 1. [place] 5/325 q.4h. as needed. 2. Modification to labetalol to 100 mg twice daily, #60. 3. Lisinopril decreased to 10 mg daily, #30. 4. Xarelto 10 mg daily for 7 days per protocol. Wound management was per Dr. Whiting's joint replacement. He can shower, no tub baths. He has followup appointment scheduled with Dr. Whiting. CONDITION ON DISCHARGE: Stable and improved. DISPOSITION: [id number] MTDD
== END 2019-10-20 12:58 | DRG 470 ==
LOC: AMB 05:44 → MS 11:27
PROVIDERS: ADMIT Orthopaedic Surgery; ATTEND Nurse Practitioner Family
PROC: 0SRD0J9 Replacement of Left Knee Joint with Synthetic Substitute, Cemented, Open Approach (ICD-10-PCS; principal; 2019-10-16 07:00)
DX: M17.12 Unilateral primary osteoarthritis, left knee (principal); I95.9 Hypotension, unspecified; G47.33 Obstructive sleep apnea (adult) (pediatric); I10 Essential (primary) hypertension; F10.21 Alcohol dependence, in remission; Z79.1 Long term (current) use of non-steroidal anti-inflammatories (NSAID); Z79.82 Long term (current) use of aspirin; Z79.899 Other long term (current) drug therapy; Z85.810 Personal history of malignant neoplasm of tongue; Z87.891 Personal history of nicotine dependence

== ENCOUNTER → 2020-05-22 | Outpatient (CLI) | payer MEDICARE, OTHER | LOC: GMAE 11:05 | PROVIDERS: ATTEND Family Medicine | DX: Z12.5 Encounter for screening for malignant neoplasm of prostate (principal); E29.9 Testicular dysfunction, unspecified; I10 Essential (primary) hypertension; Z79.891 Long term (current) use of opiate analgesic | CPT/HCPCS: 84403; 84443; G0103 ==